=== PATIENT | female | born 1990 | race Two or more races ===

== ENCOUNTER 2021-10-15 08:48 | Outpatient (REF) | payer OTHER, SELFPAY ==
[2021-10-16 11:34] LABS: H Pylori Breath Test Negative (Negative)
== END 2021-10-15 08:49 | disposition home or self-care (01) ==
LOC: HO.LNP 08:48
PROVIDERS: Surgery; PCP Internal Medicine; Visit Provider Physician Assistant Surgical
DX: E66.9 Obesity, unspecified (principal); Z68.35 Body mass index [BMI] 35.0-35.9, adult; I10 Essential (primary) hypertension
CPT/HCPCS: 83013; 99211

== ENCOUNTER → 2021-10-27 14:40 | Outpatient (BNVA) | payer OTHER, SELFPAY | PROVIDERS: PCP Internal Medicine; Visit Provider Physician Assistant Surgical | DX: E66.9 Obesity, unspecified (principal); Z68.36 Body mass index [BMI] 36.0-36.9, adult | CPT/HCPCS: 99212 ==

== ENCOUNTER → 2021-10-28 16:30 | Outpatient (BNVA) | payer OTHER, SELFPAY | PROVIDERS: PCP Internal Medicine; Visit Provider Counselor Mental Health | DX: F33.1 Major depressive disorder, recurrent, moderate (principal) | CPT/HCPCS: 90791 ==

== ENCOUNTER 2021-11-25 09:45 | Outpatient (REF) | payer OTHER, SELFPAY ==
--- NOTE | ~2021-11-25 | XR_ITS ---
EXAMINATION: XR CHEST 2 VIEWS CLINICAL INFORMATION: Obesity. COMPARISON: None. TECHNIQUE: Frontal and lateral views of the chest were obtained. FINDINGS: The heart, great vessels, pulmonary vasculature and mediastinum are normal. The lungs show no focal infiltrate, effusion or pneumothorax. There is no acute osseous abnormality. There is retained barium within the stomach and upper abdominal bowel loops. XR/XR chest 2V IMPRESSION: No active cardiopulmonary disease.
--- NOTE | ~2021-11-25 | US_ITS ---
EXAMINATION: US COMPLETE ABDOMEN WITH LIVER ELASTOGRAPHY CLINICAL INFORMATION: Obesity COMPARISON: None TECHNIQUE: Real-time imaging of the abdominal viscera. Noninvasive ultrasound liver fibrosis assessment is performed using [employer]hat ElastPQ point quantification shear wave elastography (2D-SWE) with a C5-2 MHz transducer. Multiple elastography samples are obtained. FINDINGS: PANCREAS: Normal. The visualized pancreatic head and body are normal in appearance. The remainder of the pancreas is obscured from visualization by the overlying bowel gas. ABDOMINAL AORTA: The proximal, middle, and distal aortic segments are normal in caliber. INFERIOR VENA CAVA: Visualized portions are normal. LIVER: Normal. The liver demonstrates normal size, contour and echogenicity. No focal lesion or intrahepatic biliary duct dilatation. The right lobe measures 14.5 cm in length. The left lobe measures 10.6 cm in length. Portal flow is hepatopedal. Shear wave liver elastography median stiffness is 1.83 m/s (reference: normal median stiffness is 1.3 m/s or less). IQR/median stiffness to assess sampling precision is 0.34 (reference: good quality data set is IQR/median stiffness of 0.15 or less). GALLBLADDER: Gallbladder wall thickness is 0.3 cm. The gallbladder is physiologically distended without evidence of stones, sludge, polyps, wall thickening or pericholecystic fluid. COMMON BILE DUCT: Normal in caliber measuring 0.4 cm in diameter. RIGHT KIDNEY: Normal. No hydronephrosis. No renal calculi or focal parenchymal lesions. The kidney measures 11.1 cm in maximum dimension. LEFT KIDNEY: Normal. No hydronephrosis. No renal calculi or focal parenchymal lesions. The kidney measures 11.2 cm in maximum dimension. SPLEEN: Normal. The spleen measures 9.9 cm in maximum dimension. FREE FLUID: None US/US abdomen comp w elastography IMPRESSION: 1. Unremarkable complete abdomen ultrasound. 2. Liver elastography: Median liver stiffness measurement of 1.83 m/s correlates with cACLD (suggestive). REFERENCE: Society of Radiologists in Ultrasound Liver Stiffness Thresholds (2020): LIVER STIFFNESS THRESHOLDS: *Liver Stiffness equal or less than 1.3 m/s: High probability of being normal. *Liver Stiffness less than 1.7 m/s: In the absence of other known clinical signs, rules out compensated advanced chronic liver disease. *Liver Stiffness 1.7-2.1 m/s: Suggestive of compensated advanced chronic liver disease but need further test for confirmation. *Liver Stiffness over 2.1 m/s: Rules in compensated advanced chronic liver disease. *Liver Stiffness over 2.4 m/s: Suggestive of clinically significant portal hypertension. QUALITY OF DATA SET: *IQR/Median value equal or less than 0.15 implies a quality data set. *IQR/Median value over 0.15 implies a poor quality data set. SIGNIFICANT CHANGE FROM PRIOR EXAM: Significant change if liver stiffness measurement is 10% or greater from prior exam. OTHER CONSIDERATIONS: The stage of liver fibrosis may be overestimated in the setting of acute hepatitis, liver inflammation, elevated liver function tests, hepatic vascular congestion, obstructive cholestasis, non-fasting state, and infiltrative diseases such as amyloidosis and lymphoma. In some patients with NAFLD, the liver stiffness thresholds for compensated advanced chronic liver disease may be lower. In causes other than viral hepatitis and NAFLD, liver stiffness thresholds are not well established.
--- NOTE | ~2021-11-25 | FL_ITS ---
EXAMINATION: XR FLUOROSCOPY UPPER GI WITH AIR CLINICAL INFORMATION: Obesity. COMPARISON: None. TECHNIQUE: Routine upper GI air-contrast study was performed. FINDINGS: Following oral administration of thick barium and effervescent granules, there is normal propagation of bolus from the oral cavity through the pharynx and esophagus and into stomach without any evidence of obstruction, narrowing or stricture. On placing patient supine and prone lying, the course, caliber and peristalsis of the stomach, duodenal bulb and the sweep are normal. There is mild gastroesophageal reflux without hiatal hernia. There is flocculation of barium in the antrum of the stomach suspicious for increased acidity. No ulceration order erosive changes seen. FLUOROSCOPY TIME: 1.7 minutes. DOSE AREA PRODUCT: 30.358 uGy-m2 (microgray-meter squared). FL/FL upper GI w air IMPRESSION: Mild gastroesophageal reflux without hiatal hernia. Suspect mild increased acidity. No ulceration seen.
[2021-11-25 10:09] LABS: MANUAL DIFF FLAG NO
[2021-11-25 11:07] LABS: Basophils Percent Auto 0.7 % (0-2); Eosinophils Absolute Auto 0.4 X10*3/uL (0.0-0.4); Eosinophils Percent Auto 5.9 % (0-4); Hematocrit 39.4 % (37.0-47.0); Hemoglobin 12.7 g/dl (12.0-16.0); Imm Gran Abs Auto 0.02 X10*3/uL (0.00-0.03); Imm Gran Pct Auto 0.3 % (0.0-0.4); Lymphocytes Absolute Auto 1.4 X10*3/uL (1.2-4.9); Lymphocytes Percent Auto 22.9 % (20-40); Mean Corpuscular HGB Conc 32.2 g/dl (31.0-35.0); Mean Platelet Volume 11.6 fL (9.4-12.3); Monocytes Absolute Auto 0.4 X10*3/uL (0.1-1.2); Monocytes Percent Auto 6.1 % (2-11); Neutrophils Absolute Auto 3.9 x10*3/uL (2.0-8.3); Neutrophils Percent Auto 64.1 % (45-73); Platelet Count 344 X10*3/uL (160-400); Red Blood Count 4.53 X10*6/uL (4.20-5.50); Red Cell Distribution Width 13.1 % (11.0-16.0); White Blood Count 6.1 X10*3/uL (4.8-10.8)
[2021-11-25 11:19] LABS: Estimated Average Glucose 91 mg/dL; Hemoglobin A1c % 4.8 %
[2021-11-25 11:43] LABS: Alanine Aminotransferase 11 U/L (0-31); Albumin Level 4.2 g/dL (3.5-5.0); Alkaline Phosphatase 56 U/L (39-117); Anion Gap 16 (12-20); Aspartate Amino Transferase 17 U/L (5-31); Bilirubin Total 0.7 mg/dL (0.0-1.0); Blood Urea Nitrogen 19 mg/dL (9-16); C Reactive Protein 0.35 mg/dL (< or = 0.50); Calcium 8.8 mg/dL (8.4-10.2); Carbon Dioxide 25 mmol/L (22-29); Chloride 103 mmol/L (96-108); Cholesterol 192 mg/dL; Estimated Glomerular Filt Rate > 60; Glucose Random 90 mg/dL (60-115); HDL Cholesterol 62 mg/dL; Iron 107 mcg/dL (30-160); LDL Cholesterol Calculated 115 mg/dl; Percent Iron Saturation 27 % (15-50); Potassium 4.4 mmol/L (3.3-5.1); Sodium 140 mmol/L (135-145); Total Iron Binding Capacity 398 mcg/dL (228-428); Total Protein 7.4 g/dL (6.5-8.0); Triglycerides 76 mg/dL; Unsaturated Iron Binding 291 ug/dL
[2021-11-25 12:14] LABS: Ferritin 23 ng/mL (10-122); Insulin 8 uU/mL (2-29); TSH reflex Free T4 0.62 uIU/mL (0.32-4.0); Vitamin D 25-OH Total 17.8 ng/mL (>30)
[2021-11-25 12:16] LABS: Folate 14.1 ng/mL (> or = 4.0); Vitamin B12 533 pg/mL (200-900)
[2021-11-28 12:52] LABS: PTHI 65 pg/mL (16-77)
[2021-11-30 14:18] LABS: Zinc 60 mcg/dL (60-130)
[2021-12-01 14:02] LABS: Vitamin B1 10 nmol/L (8-30)
[2021-12-01 15:17] LABS: Vitamin A 38 mcg/dL (38-98)
== END 2021-11-25 09:46 | disposition home or self-care (01) ==
LOC: HO.LAB 09:45
PROVIDERS: Visit Provider Surgery
DX: E66.9 Obesity, unspecified (principal); I10 Essential (primary) hypertension; K21.9 Gastro-esophageal reflux disease without esophagitis; Z68.35 Body mass index [BMI] 35.0-35.9, adult
CPT/HCPCS: 36415; 71046; 74246; 76705; 76981; 80053; 80061; 82306; 82607; 82728; 82746; 83036; 83525; 83540; 83970; 84425; 84443; 84590; 84630; 85025; 86140

== ENCOUNTER → 2021-12-09 15:00 | Outpatient (BNVA) | payer OTHER, SELFPAY | PROVIDERS: PCP Internal Medicine; Visit Provider Counselor Mental Health | DX: F33.1 Major depressive disorder, recurrent, moderate (principal) | CPT/HCPCS: 90832 ==

== ENCOUNTER 2021-12-16 11:45 | Outpatient (REF) | payer OTHER, SELFPAY ==
--- NOTE | 2021-12-16 11:50 | ECG_ITS ---
Test Reason : e66.9 Blood Pressure : / mmHG Vent. Rate : 082 BPM Atrial Rate : 082 BPM P-R Int : 138 ms QRS Dur : 074 ms QT Int : 364 ms P-R-T Axes : 067 057 026 degrees QTc Int : 425 ms Normal sinus rhythm with sinus arrhythmia Normal ECG No previous ECGs available Referred By: Alex Yuen Electronically Signed By:BERNARD ANDREA
== END 2021-12-16 11:46 | disposition home or self-care (01) ==
LOC: HO.XRAY 11:45
PROVIDERS: Visit Provider Surgery
DX: I10 Essential (primary) hypertension (principal); E66.9 Obesity, unspecified; Z68.35 Body mass index [BMI] 35.0-35.9, adult
CPT/HCPCS: 93005

== ENCOUNTER → 2021-12-23 09:45 | Outpatient (BNVA) | payer OTHER, SELFPAY | PROVIDERS: PCP Internal Medicine; Visit Provider Dietitian, Registered | DX: E66.9 Obesity, unspecified (principal); Z68.35 Body mass index [BMI] 35.0-35.9, adult | CPT/HCPCS: 97802 ==

== ENCOUNTER → 2022-02-08 13:45 | Outpatient (BNVA) | payer OTHER, SELFPAY | PROVIDERS: PCP Internal Medicine; Visit Provider Dietitian, Registered | DX: E66.9 Obesity, unspecified (principal) | CPT/HCPCS: 97803 ==

== ENCOUNTER → 2022-04-06 08:10 | Outpatient (BNVA) | payer OTHER, SELFPAY | PROVIDERS: PCP Internal Medicine; Visit Provider Surgery | DX: Z13.89 Encounter for screening for other disorder (principal) ==

== ENCOUNTER → 2022-04-15 08:20 | Outpatient (BNVA) | payer OTHER, SELFPAY | PROVIDERS: PCP Internal Medicine; Visit Provider Surgery | DX: Z13.89 Encounter for screening for other disorder (principal) ==

== ENCOUNTER 2022-04-26 06:14 | Inpatient (IN) | payer OTHER, SELFPAY ==
[2022-04-18 10:06] VITALS: BMI 34.2
[2022-04-21 10:30] LABS: MANUAL DIFF FLAG NO
[2022-04-21 10:48] LABS: Basophils Percent Auto 0.8 % (0-2); Eosinophils Absolute Auto 0.4 X10*3/uL (0.0-0.4); Eosinophils Percent Auto 6.9 % (0-4); Hematocrit 38.5 % (37.0-47.0); Hemoglobin 12.5 g/dl (12.0-16.0); Imm Gran Abs Auto 0.01 X10*3/uL (0.00-0.03); Imm Gran Pct Auto 0.2 % (0.0-0.4); Lymphocytes Absolute Auto 1.7 X10*3/uL (1.2-4.9); Lymphocytes Percent Auto 32.7 % (20-40); Mean Corpuscular HGB Conc 32.5 g/dl (31.0-35.0); Mean Corpuscular Hemoglobin 28.6 pg (27.0-33.0); Mean Corpuscular Volume 88.1 fL (80.0-98.0); Mean Platelet Volume 11.5 fL (9.4-12.3); Monocytes Absolute Auto 0.4 X10*3/uL (0.1-1.2); Monocytes Percent Auto 8.3 % (2-11); Neutrophils Absolute Auto 2.6 x10*3/uL (2.0-8.3); Neutrophils Percent Auto 51.1 % (45-73); Platelet Count 311 X10*3/uL (160-400); Red Blood Count 4.37 X10*6/uL (4.20-5.50); Red Cell Distribution Width 12.6 % (11.0-16.0); White Blood Count 5.1 X10*3/uL (4.8-10.8)
[2022-04-21 10:55] LABS: Estimated Average Glucose 94 mg/dL; Hemoglobin A1c % 4.9 %
[2022-04-21 10:57] LABS: Prothrombin Time 11.4 SEC (10.0-13.1)
[2022-04-21 11:00] LABS: Partial Thromboplastin Time 32.4 SEC (26.0-36.4)
[2022-04-21 13:10] LABS: Alanine Aminotransferase 12 U/L (0-31); Albumin Level 4.1 g/dL (3.5-5.0); Alkaline Phosphatase 60 U/L (39-117); Anion Gap 9 (12-20); Aspartate Amino Transferase 16 U/L (5-31); Bilirubin Total 0.8 mg/dL (0.0-1.0); Blood Urea Nitrogen 19 mg/dL (9-16); C Reactive Protein 0.28 mg/dL (< or = 0.50); Calcium 9.2 mg/dL (8.4-10.2); Carbon Dioxide 27 mmol/L (22-29); Chloride 107 mmol/L (96-108); Cholesterol 183 mg/dL; Creatinine Clr Calc Pharmacy 103.4; Estimated Glomerular Filt Rate > 60; Glucose Random 88 mg/dL (60-115); HDL Cholesterol 56 mg/dL; LDL Cholesterol Calculated 116 mg/dl; Potassium 4.6 mmol/L (3.3-5.1); Sodium 138 mmol/L (135-145); Total Protein 7.1 g/dL (6.5-8.0); Triglycerides 58 mg/dL
[2022-04-21 13:31] LABS: Insulin 7 uU/mL (2-29); TSH reflex Free T4 0.71 uIU/mL (0.32-4.0)
--- NOTE | 2022-04-22 22:34 | MHC.SHP ---
Pre-Procedural Eval Section A Date of Service: 04/22/22 The patient is an INPATIENT: Yes The History & Physical has been completed within 30 days and I have reviewed it.: Yes Section B Chief Complaint: Obesity, unspecified Relevant Family History (Specify if Yes): No Relevant Social History: None Present Medications: None Medical History: No relevant PMH History of Previous Operations: No relevant previous surgery Allergies: Allergies Allergy/AdvReac Type Severity Reaction Status Date / Time seafood Allergy Lip Verified 04/18/22 10:06 Swelling Review of Systems Sugical H&P ROS: Negative: Constitution, Cardiovascular, Respiratory, Neurological, Psychiatric, Hem-Onc, Allergic/Immunologic, Gastrointestinal, Genitourinary, Musculoskeletal, Integumentary, Endocrine and Eyes/Ears/Nose/Throat Exam Surgical H&P Exam: Normal: HEENT, Normal: Heart, Normal: Lungs, Normal: Extremities, Normal: Abdomen, Normal: Skin and Normal: Neurological Plan Diagnosis/Plan: Unchanged I have reviewed the history and physical and performed a pertinent physical examination on my patient. No changes have occurred unless specified. Time Spent With Patient Time: Total time managing care of this patient today ____ minutes.
--- NOTE | 2022-04-25 10:33 | P.CONAN_ITS ---
Documented by User: Jocelyn Hampton NP 04/25/22 10:34 HPI - Anesthesia Eval Consult details Narrative: 31yo F for Gastrectomy Sleeve,Possible Diaphragmatic hernia,Possible Ventral Hernia,Possible open PMFSH Active Problems Active Problems: All Active Problems (Updated 04/18/22 @ 09:51 by Hayde Mandujano, QUEENIE) Obesity (Acute) BMI 35.0-35.9,adult (Acute) Hypertension (Acute) Depression (Acute) Anxiety (Acute) Major depressive disorder, recurrent, moderate (Acute) Vitamin D deficiency (Acute) BMI 36.0-36.9,adult (Acute) BMI 34.0-34.9,adult (Acute) BMI 33.0-33.9,adult (Acute) Past Medical History Medical History Asthma HTN (hypertension) Family History Family History Mother Asthma Anxiety with depression Anemia Father No problems noted. Brother Anxiety with depression Sister No problems noted. Sister No problems noted. Sister No problems noted. Daughter No problems noted. Daughter Asthma Son Asthma Son Asthma Son No problems noted. Surgical History Surgical History History of tubal ligation Hx of section Social History Social History Are you a primary insurance healthcare representative to a significant other at home: No Do you presently have visiting nurse or other home services: No Alcohol intake: current Alcohol intake frequency: holidays/special occasions only Patient Tobacco Use Status: Never used Tobacco Use of substances other than those prescribed or required for medical reasons: No Have you been hit, kicked, punched, or otherwise hurt by someone within the past year? If so, by whom?: No Are you DNR?: No Advance Directives: No Advance Directives Information Provided: Yes (info mailed w/ pre-op instructions) Advance Directives on File: No Recently lost weight without trying: No How much weight loss: 2-13 pounds Nutrition Risks: No Nutritional Risk Patient : No FDLMP: 03/26/22 : No Poor oral hygiene: No Meds Allergies Allergy/AdvReac Type Severity Reaction Status Date / Time seafood Allergy Lip Verified 04/26/22 06:21 Swelling Home Medications Medication Instructions Recorded Confirmed Last Taken Type albuterol sulfate 90 mcg/actuation 1 puff PO QID PRN wheezing 09/27/21 04/26/22 04/25/22 History aerosol inhaler (ProAir HFA) hydrochlorothiazide 25 mg tablet 25 mg PO DAILY 09/27/21 04/26/22 04/25/22 History Exam Exam Date and Time: April 25, 2022 1033 Height,Weight and Vital Signs: Height 5 ft 2 in Weight 84.822 kg Pertinent Lab Results Pertinent Lab Results: Laboratory Tests 04/21/22 04/21/22 04/21/22 10:25 10:29 10:29 WBC 5.1 RBC 4.37 Hgb 12.5 Hct 38.5 MCV 88.1 MCH 28.6 MCHC 32.5 RDW 12.6 Plt Count 311 MPV 11.5 Immature Gran % (Auto) 0.2 Neut % (Auto) 51.1 Lymph % (Auto) 32.7 Rowan % (Auto) 8.3 Eos % (Auto) 6.9 H Baso % (Auto) 0.8 Lymph # (Auto) 1.7 Rowan # (Auto) 0.4 Eos # (Auto) 0.4 Baso # (Auto) 0.0 Abs Immat Gran (auto) 0.01 Absolute Neuts (auto) 2.6 Absolute Nucleated RBC 0.000 Nucleated RBC % (auto) 0.0 PT 11.4 INR 1.0 APTT 32.4 Sodium Potassium Chloride Carbon Dioxide Anion Gap BUN Creatinine Estim Creat Clear Calc Estimated GFR Random Glucose Estimat Average Glucose Hemoglobin A1c % Insulin Level Calcium Total Bilirubin AST ALT Alkaline Phosphatase C-Reactive Protein Total Protein Albumin Triglycerides Cholesterol LDL Cholesterol, Calc HDL Cholesterol TSH Blood Type O Positive Antibody Screen NEGATIVE 04/21/22 04/21/22 10:29 10:29 WBC RBC Hgb Hct MCV MCH MCHC RDW Plt Count MPV Immature Gran % (Auto) Neut % (Auto) Lymph % (Auto) Rowan % (Auto) Eos % (Auto) Baso % (Auto) Lymph # (Auto) Rowan # (Auto) Eos # (Auto) Baso # (Auto) Abs Immat Gran (auto) Absolute Neuts (auto) Absolute Nucleated RBC Nucleated RBC % (auto) PT INR APTT Sodium 138 Potassium 4.6 Chloride 107 Carbon Dioxide 27 Anion Gap 9 L BUN 19 H Creatinine 0.81 Estim Creat Clear Calc 103.4 Estimated GFR > 60 Random Glucose 88 Estimat Average Glucose 94 Hemoglobin A1c % 4.9 Insulin Level 7 Calcium 9.2 Total Bilirubin 0.8 AST 16 ALT 12 Alkaline Phosphatase 60 C-Reactive Protein 0.28 Total Protein 7.1 Albumin 4.1 Triglycerides 58 Cholesterol 183 LDL Cholesterol, Calc 116 HDL Cholesterol 56 TSH 0.71 Blood Type Antibody Screen Narrative Narrative: EKG 12/2021 Vent. Rate : 082 BPM ? ? Atrial Rate : 082 BPM ?? P-R Int : 138 ms? QRS Dur : 074 ms ? ? QT Int : 364 ms ? ? ? P-R-T Axes : 067 057 026 degrees ?? QTc Int : 425 ms ? Normal sinus rhythm with sinus arrhythmia Normal ECG No previous ECGs available Assessment and Plan Assessment Anesthesia Assessment: Chart Reviewed Documented by User: Kayleen Guerrero MD 04/26/22 07:40 [facility] Active Problems Active Problems: All Active Problems (Updated 04/26/22 @ 07:20 by Kayleen Guerrero MD) Obesity (Acute) BMI 35.0-35.9,adult (Acute) Hypertension (Acute) Depression (Acute) Anxiety (Acute) Major depressive disorder, recurrent, moderate (Acute) Vitamin D deficiency (Acute) BMI 36.0-36.9,adult (Acute) BMI 34.0-34.9,adult (Acute) BMI 33.0-33.9,adult (Acute) Asthma Past Medical History Medical History Asthma HTN (hypertension) Family History Family History Mother Asthma Anxiety with depression Anemia Father No problems noted. Brother Anxiety with depression Sister No problems noted. Sister No problems noted. Sister No problems noted. Daughter No problems noted. Daughter Asthma Son Asthma Son Asthma Son No problems noted. Family history of problems with anesthesia: No Surgical History Surgical History History of tubal ligation Hx of section History of Problems with Anesthesia: No (C- Section) Social History Social History Are you a primary insurance healthcare representative to a significant other at home: No Do you presently have visiting nurse or other home services: No Alcohol intake: current Alcohol intake frequency: holidays/special occasions only Patient Tobacco Use Status: Never used Tobacco Use of substances other than those prescribed or required for medical reasons: No Have you been hit, kicked, punched, or otherwise hurt by someone within the past year? If so, by whom?: No Are you DNR?: No Advance Directives: No Advance Directives Information Provided: Yes (info mailed w/ pre-op instructions) Advance Directives on File: No Recently lost weight without trying: No How much weight loss: 2-13 pounds Nutrition Risks: No Nutritional Risk Patient : No FDLMP: 03/26/22 : No Poor oral hygiene: No Meds Allergies Allergy/AdvReac Type Severity Reaction Status Date / Time seafood Allergy Lip Verified 04/26/22 06:21 Swelling Home Medications Medication Instructions Recorded Confirmed Last Taken Type albuterol sulfate 90 mcg/actuation 1 puff PO QID PRN wheezing 09/27/21 04/26/22 04/25/22 History aerosol inhaler (ProAir HFA) hydrochlorothiazide 25 mg tablet 25 mg PO DAILY 09/27/21 04/26/22 04/25/22 History Exam Height,Weight and Vital Signs: Height 5 ft 2 in Weight 84.822 kg Vital Signs Temp Pulse Resp BP Pulse Ox O2 Del Method 04/26/22 06:34 98.0 F 86 16 142/91 H 99 Room Air Pertinent Lab Results Pertinent Lab Results: Laboratory Tests 04/21/22 04/21/22 04/21/22 10:25 10:29 10:29 WBC 5.1 RBC 4.37 Hgb 12.5 Hct 38.5 MCV 88.1 MCH 28.6 MCHC 32.5 RDW 12.6 Plt Count 311 MPV 11.5 Immature Gran % (Auto) 0.2 Neut % (Auto) 51.1 Lymph % (Auto) 32.7 Rowan % (Auto) 8.3 Eos % (Auto) 6.9 H Baso % (Auto) 0.8 Lymph # (Auto) 1.7 Rowan # (Auto) 0.4 Eos # (Auto) 0.4 Baso # (Auto) 0.0 Abs Immat Gran (auto) 0.01 Absolute Neuts (auto) 2.6 Absolute Nucleated RBC 0.000 Nucleated RBC % (auto) 0.0 PT 11.4 INR 1.0 APTT 32.4 Sodium Potassium Chloride Carbon Dioxide Anion Gap BUN Creatinine Estim Creat Clear Calc Estimated GFR Random Glucose Estimat Average Glucose Hemoglobin A1c % Insulin Level Calcium Total Bilirubin AST ALT Alkaline Phosphatase C-Reactive Protein Total Protein Albumin Triglycerides Cholesterol LDL Cholesterol, Calc HDL Cholesterol TSH Blood Type O Positive Antibody Screen NEGATIVE 04/21/22 04/21/22 10:29 10:29 WBC RBC Hgb Hct MCV MCH MCHC RDW Plt Count MPV Immature Gran % (Auto) Neut % (Auto) Lymph % (Auto) Rowan % (Auto) Eos % (Auto) Baso % (Auto) Lymph # (Auto) Rowan # (Auto) Eos # (Auto) Baso # (Auto) Abs Immat Gran (auto) Absolute Neuts (auto) Absolute Nucleated RBC Nucleated RBC % (auto) PT INR APTT Sodium 138 Potassium 4.6 Chloride 107 Carbon Dioxide 27 Anion Gap 9 L BUN 19 H Creatinine 0.81 Estim Creat Clear Calc 103.4 Estimated GFR > 60 Random Glucose 88 Estimat Average Glucose 94 Hemoglobin A1c % 4.9 Insulin Level 7 Calcium 9.2 Total Bilirubin 0.8 AST 16 ALT 12 Alkaline Phosphatase 60 C-Reactive Protein 0.28 Total Protein 7.1 Albumin 4.1 Triglycerides 58 Cholesterol 183 LDL Cholesterol, Calc 116 HDL Cholesterol 56 TSH 0.71 Blood Type Antibody Screen Laboratory Results - last 24 hr 04/25/22 14:19 COVID-19 (JACQUELINE) Negative COVID-19 Clin Com See Note Airway Mallampati Class: II TM Dist: >3cm Neck ROM: Full Loose/Missing/Broken Teeth: No (Denies broken, loose, missing teeth) Heart: RRR. Small patch of redness above right breast area. Rest of chest clear Lungs: CTAB. No wheezes Assessment and Plan Assessment Anesthesia Assessment: Anesthesia Plan Discussed Final Anesthetic Review Family History of Problems with Anesthesia: No History of Problems with Anesthesia: No (C- Section) NPO: Yes ASA Class: II Final Preanesthetic Review: No Changes in Pt Med Stat, Meds/Allgs Chart Reviewed, Consent Obtained/Reviewed and Anes Risks/Benef Reviewed Patient Risk: Intermediate Procedure Risk: Intermediate Assessment/Block/Sedation in SS: Assess/Block/Sedation-SS Anesthetic Plan Anesthetic Plan: GA Disposition: Standard PACU and Inp. Admit - Standard Bed
[2022-04-25 14:51] LABS: COVID-19 Test Negative (Negative); IDNOW Serial# BCCEAD1C
[2022-04-26] VITALS (14 sets, daily range): BP systolic 127–163; BP diastolic 75–108; PULSE 79–98; RESP 8–18; TEMP 36.2–36.7; O2SAT 94–100
[2022-04-26] MEDS: Lactated Ringers 1,000 ML 999 ML IV (06:47)
[2022-04-26] MEDS: Lactated Ringers 1,000 ML 100 ML IVCONT ×3 (06:47→19:20)
--- OUTSIDE RECORDS SUMMARY | 2022-04-26 07:08 | XMS_ITS | Continuity of Care Document ---
:1990 Author Organization [facility] Address [address] [place] [id number]- Care Team Providers Name Role Phone Kizzy SONG, Vu Klein Primary Care Physician Encounter [facility] Date(s): 02/24/22 - 04/23/22 [facility] [address] [place] [id number]- Attending Physician: Not on Staff, Attending MD Allergies, Adverse Reactions, Alerts Substance Reaction Severity Status Pollen Active Shrimp lips swell Active Immunizations Given and Recorded Vaccine Date Status Refusal Reason tetanus/diphtheria/pertussis, acel(Tdap) 04/21/22 Given tetanus/diphtheria/pertussis, acel(Tdap) 03/22/12 Given influenza virus vaccine, inactivated 04/21/22 Given influenza virus vaccine, inactivated 02/26/21 Given influenza virus vaccine, inactivated 03/23/18 Given influenza virus vaccine, inactivated 04/30/14 Given influenza virus vaccine, inactivated 03/22/12 Given influenza virus vaccine, inactivated 03/29/11 Given influenza virus vaccine, inactivated 12/18/09 Given SARS-CoV-2 mRNA ([id number]) vax 08/02/21 Recorde d SARS-CoV-2 mRNA ([id number]) vax 07/01/21 Recorde d Measles/Mumps/Rubella Virus Vaccine 03/22/12 Given Measles/Mumps/Rubella Virus Vaccine 10/30/96 Given Measles/Mumps/Rubella Virus Vaccine 07/25/96 Given Measles/Mumps/Rubella Virus Vaccine 12/23/93 Given Meningococcal Conjugate Vaccine 03/29/11 Given Meningococcal Conjugate Vaccine1 11/27/07 Given Human Papillomavirus Vaccine2 11/27/07 Given Human Papillomavirus Vaccine 01/09/07 Given Human Papillomavirus Vaccine 10/27/06 Given Influenza Inactive (IM) (oldterm)3 01/09/07 Given Influenza Inactive (IM) (oldterm)4 05/04/05 Given Tet/Diphth/Acel, Pertussis (oldterm) 04/25/06 Given Poliovirus Vaccine, Inactivated 07/25/96 Given Poliovirus Vaccine, Inactivated 12/23/93 Given Poliovirus Vaccine, Inactivated 01/19/93 Given Poliovirus Vaccine, Inactivated 92 Given Diphth/Pertussis,Acel/Tetanus (oldterm) 07/25/96 Given Diphth/Pertussis,Acel/Tetanus (oldterm) 12/23/93 Given Diphth/Pertussis,Acel/Tetanus (oldterm) 03/11/93 Given Diphth/Pertussis,Acel/Tetanus (oldterm) 01/19/93 Given Diphth/Pertussis,Acel/Tetanus (oldterm) 92 Given Haemophilus B Conj Vaccine (oldterm) 12/23/93 Given Haemophilus B Conj Vaccine (oldterm) 03/11/93 Given Hepatitis B Vaccine (old term) 03/11/93 Given Hepatitis B Vaccine (old term) 01/19/93 Given Hepatitis B Vaccine (old term) 92 Given Not Given Vaccine Date Status Refusal Reason pneumococcal 23-valent vaccine 01/05/14 Not Given P atient Refuses 1Admin Note: VIS GIVEN---MENACTRA, SANOFI [id number] Note: VIS [id number] Note: vis [id number] Note: hx varicella unknown date Medications amLODIPine 10 mg oral tablet 10 mg, 1, tablet, By Mouth, Daily, # 90 tablet, Refills 2, Tot. Refills 2, Maintenance, 02/24/22 8:54:00 EST, Route to Pharmacy Electronically, [facility]/pharmacy #[id number], Partial fill upon patient request if the prescription is for a schedule II opioid drug.... Start Date: 02/24/22 Status: OrderedExcedrin Extra Strength By Mouth, Every 6 hours, 0 Refills, Maintenance, 04/26/21 22:54:00 EST, Partial fill upon patient request if the prescription is for a schedule II opioid drug. Start Date: 04/26/21 Status: Orderedhydrochlorothiazide 25 mg oral tablet 1, tablet, By Mouth, Daily, # 30 tablet, Refills 0, Route to Pharmacy Electronically, [facility] STORE [id number], 158, cm, 09/03/21 12:06:00 EDT, Height, 99, kg, 04/27/21 0:39:00 EST, Dry Weight Start Date: 10/11/21 Status: OrderedProAir HFA 90 mcg/inh inhalation aerosol with adapter See Instructions, INHALE 1 PUFF BY MOUTH 4 TIMES A DAY NEEDED FOR WHEEZING, # 18 Gm, Refills 3, Tot. Refills 3, 02/24/22 8:55:00 EST, Instructions Replace Required Details, Route to Pharmacy Electronically, [id number], [facility] Start Date: 02/24/22 Status: OrderedSymbicort 160mcg/4.5mcg Inhaler 2, puffs, Inhalation, 2 times a day, # 10.2 Gm, Refills 3, Tot. Refills 3, Maintenance, 02/24/22 8:55:00 EST, Aerosol, Route to Pharmacy Electronically, [id number], [facility]/pharmacy #[id number], 158, cm, 02/24/22 8:35:00 EST, Height, 9... Start Date: 02/24/22 Status: Ordered Problem List Condition Confirmation Course Effective Dates Status Health I nformant Status Anxiety Confirmed Active Asthma - moderate, Confirmed Active persistent COVID-19 positive Confirmed 04/08/21 Active 04/08/21 COVID-19 affecting Confirmed 04/08/21 Active in second trimester History of classical Confirmed Active section History of Confirmed Active depression Hx of preeclampsia, Confirmed Active prior , currently Chronic hypertension Confirmed Active Migraine with aura Confirmed Active Obese class II Confirmed Active Obesity in Confirmed Active Depression, major, Confirmed Active recurrent Severe obesity (BMI Confirmed Active 35.0-39.9) with comorbidity Request for Confirmed Active sterilization - considering (papers signed 09/21/15) Social History Social History Type Response Smoking Status Never (less than 100 in life time) entered on: 01/18/21 Sex Patient Care team information Care Team PersonnelName: Kizzy SONG, Vu Klein Position: S Primary Care Physician Member Role: PCP Address: Address: [address] [place] [address] [facility] [place] [address]- Name: Reynaldo JEROME, Kiki Stephens Position: S OB RN Member Role: Primary Care Nurse Care Team Related PersonsName: MANUEL, MARIAM Address: home [address] [place] [address] Name: CARMITA AMNUEL Address: [address] [place] [address] Name: GUILLERMO PARK Address: [id number] Address: home [address] [place] [address]
--- NOTE | 2022-04-26 07:40 | PM.OP ---
Brief Operative Note Date of Service: 04/26/22 Pre-op diagnosis: Severe obesity with comorbidities (see below) Post-op diagnosis: same Procedure: INITIAL PATIENT BMI ON PRESENTATION AT OUR OFFICE: 35 kg/m2 LAST BMI BEFORE SURGERY: 33.2 kg/m2 COMORBIDITIES: hypertension, depression, anxiety, GERD, liver fibrosis ?The patient presented to the Weight Management Program with significant obesity that was negatively impacting the patient's comorbidities as listed above.? The program is a phased program with a special focus on preoperative medical weight management to promote substantial weight loss and prepare the patients for the second phase of the program: bariatric surgery. The patient participated in an intensive weekly lifestyle ?intervention and exercise program during which the patient ?has lost between the initial office visit and the last preoperative visit 3.6lbs, or 1.88% of initial actual body weight. It was deemed appropriate for the patient to now have bariatric surgery. In light of the current Covid-19 pandemic and the well documented strong association of obesity and increased risk of worse outcomes if infected with Covid-19 (REFERENCES:https://pubmed.ncbi.nlm.nih.gov/44659919/,?https://pubmed.ncbi.nlm.nih.gov/89798562/), any delay in undergoing bariatric surgery may lead to the patient's worsening health condition and increased?risk of more severe Covid-19 disease if infected. In addition a recent?study from [facility] published in [facility] on 04/05/2021 ([email or web address]:/[email or web address]) found that, among patients with obesity, substantial weight loss achieved with surgery was associated with improved outcomes of COVID-19 infection. The findings suggest that obesity can be a modifiable risk factor for the severity of COVID-19 infection. In addition, the patient met the BMI-criteria for bariatric surgery based on the BMI on initial presentation. The patient should not be penalized for achieving such weight loss because ?it is not sustainable long-term without surgical intervention and it was achieved in preparation for bariatric surgery ?under my direction and based on my published research ([email or web address]).pdf and?https://www.soard.org/article/[email or web address](12)35628-X/pdf) ?that a 10% preoperative weight loss improves long-term weight loss after surgery and reduces perioperative complications.? Insurance carriers such as [facility] have endorsed my recommendations ?and have included in their policies criteria to include a 10% preoperative weight loss requirement. PROCEDURE: Esophago-gastroscopy, laparoscopic lysis of adhesions, laparoscopic sleeve gastrectomy and laparoscopic gastropexy INDICATIONS: This is a 31 year-old female who was electively scheduled for laparoscopic, possibly open sleeve gastrectomy. The risks and complications of the procedure were discussed with the patient in advance, particularly the possibility of ; pulmonary embolism; staple line leak; bleeding; GERD; cardiac, pulmonary, or renal complications; as well as long-term problems such as insufficient weight loss, vitamin deficiency, strictures, or ulcers. The patient understood all the risks, and was in agreement to proceed with surgery. DESCRIPTION OF PROCEDURE: After informed consent was obtained from the patient, the patient was given preoperative antibiotics, and was transferred to the operating room. After successful induction of general anesthesia, pneumatic compression devices were placed on both lower extremities. An upper endoscopy was performed next. The oropharynx and esophagus appeared to be within normal limits. There was no diaphragmatic hernia present consistent with the findings of the preoperative upper GI. The stomach was entered. Then after all fluid and air were suctioned and the stomach was fully decompressed, the scope was withdrawn and secured in the mid esophagus. The patient was then prepped and draped in the usual sterile manner, and abdominal access was established at the right upper quadrant with the Chika technique. A 12 mm blunt port was inserted, and the abdomen was insufflated with CO2 to a pressure of 15 mmHg. Under direct visualization, additional ports were placed, specifically two 5 mm Versi-step ports to the left upper quadrant, and a 5 mm Versi-Step port to the right upper quadrant. 1% lidocaine plain was used to infiltrate all port sites as well as all fascia defects. Following that, the patient was placed in a steep reverse Trendelenburg position. An additional 5 mm port was placed to the right flank for the Mediflex retractor that was used to retract the left lobe of the liver. The gastro-esophageal fat pad was opened with the ultrasonic device (Thunderbeat, Olympus) and the anterior esophagus and hiatus were exposed. The angle of His was opened with the ultrasonic device the fundus of the stomach from any diaphragmatic and splenic attachments. I then opened the gastrocolic ligament between the transverse colon and the greater curvature of the stomach with the ultrasonic device to enter the lesser sac and facilitate the ligation of the short gastric vessels. I started at a mid-point along the greater curvature and using the Thunderbeat, all short gastric vessels were divided all the way to the angle of His until the left patricio was completely dissected at its entirety. I then divided the gastro-colic ligament distally to a distance of about 3-4 cm proximal to the pylorus. There were extensive congenital adhesions between the pancreas and posterior gastric wall. Those were lysed completely with the ultrasonic device. Adhesiolysis took approximately 45 min to complete.? The stomach was then divided transversely with one Endo DINA-45 purple and four DINA-6s0 articulating orange loads using the AEON stapler and loads. Every effort was made that the gastric sleeve had a tubular shape and an even caliber throughout. Once the sleeve resection was completed, the staple line of the gastric sleeve was reinforced with Hemoclips. The resected stomach was retrieved without difficulty from the Chika port. A gastropexy was then performed in order to prevent postoperative GERD and partial gastric volvulus. Several interrupted 2.0 Surgidac sutures were placed between the sleeve's staple line and the previously divided greater omentum and gastro-colic ligament using the Endo-Stitch device. ?An upper endoscopy was performed. There was no narrowing at the GE junction. The scope was easily advanced all the way to the pylorus which was clearly visualized. There was no narrowing anywhere and the sleeve's caliber was even throughout. The sleeve's staple line was inspected and there was no evidence of ischemia, bleeding or dehiscence. At that point the gastroscope was withdrawn from the patient?s mouth while we were decompressing the bowel and the stomach from any remaining air. I looked into the lesser sac to see how the sleeve was situating and it was situating well. There was no bleeding from the staple line, spleen, or short gastric vessels. The Mediflex retractor was removed, and the undersurface of the liver was inspected and there was no bleeding. The patient was placed in supine position. I closed the fascial defect of the 12 mm port site with a figure of eight #1 Polysorb suture. Then 30cc of Ropivacaine plain with 10 mg of Dexamethasone were used to infiltrate the fascial closure as well as all skin incisions. A total of 5ml Zynrelef was applied in the Chika wound. At this point, the abdomen was deflated, all ports were removed under direct vision, and no bleeding was noted from any of the port sites. The skin incisions were irrigated with saline and were closed with 4-0 absorbable monofilament sutures. Steri-Strips and OpSites were used to cover all incisions. The patient was extubated and was transferred in stable condition to the recovery room for further care. I was present and performed all garza parts of the procedure. Ms. Gravesson was the first line supervisor. There were no residents to assist with this case. Will Yuen MD, PhD, FACS Surgeon: Alex Yuen MD Anesthesia: GETA, local and other (TAP block & 5ml Zynrelef) Was an Civil Engineering Project Designer used for this Procedure?: No Civil Engineering Project Designer: Amy Purdy Estimated blood loss (mL): 10 IV fluids (mL): 2,400 Urine output (mL): 0 (No Zaldivar to record) Pathology: other (Stomach) Condition: stable Disposition: PACU
--- NOTE | 2022-04-26 07:43 | PM.PNGS ---
Subjective Subjective Date of Service: 04/27/22 Interval history: Patient has mild incisional pain, but was able to ambulate and use the incentive spirometer. She is tolerating phase 1 bariatric diet Physical Exam Vital Signs: Vital Signs: Last Vital Signs Temp 98.0 F 04/26/22 06:34 Pulse 86 04/26/22 06:34 Resp 16 04/26/22 06:34 BP 142/91 H 04/26/22 06:34 Pulse Ox 99 04/26/22 06:34 O2 Del Method 04/26/22 06:34 BMI result Body Mass Index 34.2 GI: Inspection: Yes normal to inspection, Yes incision (clean, dry and intact) and Yes obesity Extrem: Right lower extremity: normal to inspection (no calf tenderness) Left lower extremity: normal to inspection (no calf tenderness) Objective Data Active Medications Albuterol Sulfate (Albuterol Sulfate (0.083%) 2.5 Mg/3 Ml Vial.Neb) 2.5 mg INHALE ONCE PRN PRN Reason: Shortness of Breath/Wheezing Fentanyl (Fentanyl Citrate/Pf 100 Mcg/2 Ml Vial) 25 mcg IVPUSH Q5M PRN; Protocol PRN Reason: Pain, Moderate (Pain Scale 4-6 Hydromorphone HCl (Hydromorphone Hcl 0.5 Mg/0.5 Ml Syringe) 0.25 mg IVPUSH Q5M PRN; Protocol PRN Reason: Pain, Severe (Pain Scale 7-10) Lactated Ringer's (Lr) 1,000 mls @ 100 mls/hr IVCONT .Q10H [facility] Last Admin: 04/26/22 06:47 Dose: 100 mls/hr Documented By: SMITHA Lactated Ringer's (Lr) 1,000 mls @ 999 mls/hr IV .Q1H1M [facility] Stop: 04/26/22 08:15 Last Admin: 04/26/22 06:47 Dose: 999 mls/hr Documented By: SMITHA Promethazine HCl 6.25 mg/ (Sodium Chloride) 50.25 mls @ 201 mls/hr IV ONCE PRN PRN Reason: Nausea and Vomiting Ondansetron HCl (Ondansetron Hcl 4 Mg/2 Ml Vial) 4 mg IVPUSH ONCE PRN PRN Reason: Nausea and Vomiting Labs 04/21/22 10:29 04/21/22 10:29 Labs: Laboratory Results - last 24 hr 04/25/22 14:19 COVID-19 (JACQUELINE) Negative COVID-19 Clin Com See Note Procedures Date of Service Date of Service: 04/27/22 Progress Note: A&P Assessment and plan (1) Obesity: Status: Acute Assessment and Plan: s/p laparoscopic sleeve gastrectomy, lysis of adhesions and gastropexy Doing well Check am labs. If OK, will discharge home? 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 Quality Stroke Does the patient have a stroke diagnosis?: No VTE Prior VTE?: No VTE Risk Level:: Surgical - moderate VTE Device Contraindication: N/A - Device Ordered VTE Drug Contraindication: Treatment Not Indicated
--- NOTE | 2022-04-26 10:12 | PM.DS ---
DS: Providers Provider Date of Service: 04/27/22 Date of admission: 04/26/22 06:14 Primary care physician: Unknown Physician DS: Diagnosis Discharge Diagnosis (1) Obesity: Status: Acute (2) BMI 33.0-33.9,adult: Status: Acute (3) Hypertension: Status: Acute (4) Depression: Status: Acute (5) Anxiety: Status: Acute (6) GERD (gastroesophageal reflux disease): Status: Acute (7) Liver fibrosis: Status: Acute (8) Asthma: Status: Acute DS: Summary Hospital Course Hospital Course: ADMITTING DIAGNOSIS: morbid obesity, HTN, asthma DISCHARGE DIAGNOSIS: same, s/p laparoscopic sleeve gastrectomy PAST SURGICAL HISTORY: section and BTL PROCEDURE: upper endoscopy, laparoscopic sleeve gastrectomy DISCHARGE SUMMARY: History of Present Illness: The patient is a 31 year-old woman with a BMI of 34.9 kg/m2 and associated co-morbidities as described above. The patient had extensive work-up, lost 3.6 lbs preoperatively and was electively scheduled for laparoscopic, possible open sleeve gastrectomy and gastropexy. Risks and complications of the surgery were discussed with the patient in advance, particularly the possibility of , pulmonary embolism, anastomotic leak, bleeding, bowel injury, GERD, cardiac, renal or pulmonary complications. The patient understood all the risks and was in agreement with the surgical plan. Hospital Course: The patient underwent an uneventful laparoscopic sleeve gastrectomy with gastropexy on the day of admission. Postoperatively, the patient was transferred to the surgical floor. The patient received IV Acetaminophen and IV dilaudid for pain control. Patient was started on bariatric phase 1 diet POD #0. On postoperative day one, the patient was feeling well without nausea, vomiting, fevers, or tachycardia. The patient had some mild incisional pain and the abdomen was soft. On the morning of postoperative day one, the patient was continued on 1 ounce of water or ice every half hour. During the day, the patient did fairly well, having some incisional pain, but able to ambulate adequately and to tolerate liquids well. Since the patient is doing well, we decided that the patient was ready to be discharged. The patient was given instructions to follow-up with me next week and to call my office for any fever over 101, persistent abdominal pain, nausea, vomiting, GERD, symptoms of DVT such as calf tenderness, or leg swelling, or pulmonary embolism such as chest pain or shortness of breath. The patient was also instructed to drink 40-60 ounces of liquids per day using the 1-ounce cups. The patient had been given prescriptions for Tylenol for pain, Zofran prn for nausea, and pantoprazole and carafate previously. The patient was encouraged to ambulate and use the incentive spirometer. The patient was allowed to shower, but no baths, and encouraged to stay active at home. All of these instructions were given to the patient personally. All questions were answered and the patient understood all instructions, the instructions were also given to the patient in print. Time Spent with Patient Time attestation: Total time managing care of this patient today ____ minutes. Discharge coordination time: Less than 30 minutes Quality: Safe Use of Opioids Does Pt have an Active Cancer Diagnosis on the Problem List?: No Quality: Stroke Does the patient have a stroke diagnosis?: No Physical Exam Vital Signs: Vital Signs: Last Vital Signs Temp 98.0 F 04/26/22 06:34 Pulse 86 04/26/22 06:34 Resp 16 04/26/22 06:34 BP 142/91 H 04/26/22 06:34 Pulse Ox 99 04/26/22 06:34 O2 Del Method 04/26/22 06:34 BMI result Body Mass Index 34.2 DS: Data Data Completed and Pending Pending studies at discharge: Pending at discharge 04/26/22 09:22 Surgical [PTH] Routine Labs on day of discharge: Laboratory Results - last 24 hr 04/25/22 14:19 COVID-19 (JACQUELINE) Negative COVID-19 Clin Com See Note Discharge Plan Discharge Anticipated Discharge Date/Time: 04/27/22 10:05 Patient Disposition: Home, Self-Care Discharge Diagnosis: s/p sleeve gastrectomy Referrals: Physician,Unknown J [Primary Care Provider] - 1 Week Discharge Medications: Continued albuterol sulfate [ProAir HFA] 90 mcg/actuation HFA aerosol inhaler 1 puff PO QID PRN (Reason: wheezing) pantoprazole 40 mg tablet,delayed release (DR/EC) 40 mg PO DAILY Qty: 30 2RF sucralfate 100 mg/mL suspension 10 ml PO BID Qty: 400 2RF ondansetron HCl 4 mg tablet 4 mg PO Q12H Qty: 20 0RF Held hydrochlorothiazide 25 mg tablet 25 mg PO DAILY Hold Instructions: Resume on 04/28/22. Measure your blood pressure daily. Don't take it if your blood pressure is below 120/70. Report blood pressures to Dr. Yuen lisinopril 2.5 mg tablet 2.5 mg PO DAILY Qty: 30 2RF Hold Instructions: Resume on 04/28/22. Measure your blood pressure daily. Don't take it if your blood pressure is below 120/70. Report blood pressures to Dr. Yuen Discontinued cholecalciferol (vitamin D3) 125 mcg (5,000 unit) capsule 125 mcg PO DAILY Qty: 30 2RF Discharge Orders: Discharge Order (Routine); Ordered 04/27/22 Ordered By: Alex Yuen Activity on Discharge: No heavy lifting Stand Alone Forms: Patient Portal Discharge page Care Plan Goals: weight loss Health Concerns: obesity Plan of Treatment: No tub baths, sex or returning to work until discussed at first post op appointment. No exercise, alcohol, tobacco or illegal drug use. Continue to use incentive spirometer hourly while awake. Walk in home for 5- 10 minutes every 2 hours during the first week. Continue phase 1 diet today and start phase 2 diet tomorrow morning. Follow all instructions in the bariatric handbook and call with any questions. 1. Please call your doctor or come back to the emergency room should any new symptoms arise. 2. You will receive a courtesy call from [facility] 24-48 hours after discharge. 3. Activity: abstain from alcohol, practice limited stair climbing, no bending, no driving, no exercise, no illicit substances, no lifting, no sex, no tub bath, no work. 4. Diet: continue as discussed with bariatric team.. 5. Dressing Change/Wound Care: Do not change or remove surgical dressings unless they are wet or soiled. 6. Call your doctor if: - Your temperature exceeds 101.5 F - You experience excessive pain or swelling - You have an unexpected reaction to medication - You have excessive bleeding - You experience continued vomiting/nausea - Your incision begins to separate - Your incision shows signs of infection such as increased redness, swelling, excessive pain, heat, or drainage (light blood or clear fluid is normal) 7. General instructions: No lifting greater than 5 lbs for the next 4 weeks[address] driving within 24 hours of taking narcotic pain medications. If you do not move your bowels in the next 2 days, please take milk of magnesia over the counter. Please follow the post op diet and do not advance your diet until you are seen in the office in about 2 weeks. Please walk around your home every hour or two to prevent blood clots from forming in your legs. You do not need to wake from sleeping to walk. Please sleep in a bed or couch to prevent kinking at the hips and knees. Please take your incentive spirometer (your lung lube attendant) home with you and use it for the next few days to prevent pneumonias. You may shower, no hot tubs, baths or swimming pools. Please call the office with any questions or concerns such as increasing abdominal pain, fever, chills, shortness of breath, chest pain, leg pain or swelling, or redness or drainage from your incisions. Do not hesitate to contact the office with any questions at . The patient's medical history has been reviewed and they are considered low risk for post op DVT and therefore DVT prophylaxis is not considered necessary. Travel after surgery was reviewed. The patient has not disclosed any travel plans during the first 30 days after surgery and they have been advised that within the first 30 days after surgery any bus, plane, train or car travel over 2 hours in duration is contraindicated due to the possibility of developing blood clots from immobility. Any travel, needs to include periods of ambulation of 10 minutes in duration every 2 hours. The patient was instructed to discuss any plans for travel during this period with their bariatric surgeon. Assessment: stable post op sleeve gastrectomy
[2022-04-26] MEDS: Famotidine/PF 20 MG/2 ML VIAL IVPUSH ×2 (11:03→19:20)
[2022-04-26 11:08] LABS: Hematocrit 37.9 % (37.0-47.0); Hemoglobin 12.3 g/dl (12.0-16.0)
[2022-04-26 11:32] LABS: Anion Gap 11 (12-20); Blood Urea Nitrogen 14 mg/dL (9-16); Calcium 8.5 mg/dL (8.4-10.2); Carbon Dioxide 25 mmol/L (22-29); Chloride 105 mmol/L (96-108); Creatinine Clr Calc Pharmacy 108.9; Estimated Glomerular Filt Rate > 60; Glucose Random 120 mg/dL (60-115); Potassium 4.1 mmol/L (3.3-5.1); Sodium 137 mmol/L (135-145)
[2022-04-26] MEDS: ondansetron HCL 4 MG/2 ML VIAL IVPUSH ×2 (12:02→19:20)
[2022-04-26] MEDS: ceFAZolin Sodium/Dextrose,Iso 2 GM/50 ML PIGGYBACK IV (13:47)
[2022-04-26] MEDS: Acetaminophen 1,000 MG/100 ML PIGGYBACK 16.7 MG IV ×2 (14:29→19:20)
[2022-04-26] MEDS: lisinopriL 2.5 MG TABLET PO (15:40)
[2022-04-26] MEDS: 0.9 % Sodium Chloride Flush 3 ML SYRINGE IVFLUSH (19:21)
[2022-04-27] MEDS: Acetaminophen 1,000 MG/100 ML PIGGYBACK 16.7 MG IV ×2 (01:08→06:25)
[2022-04-27 03:43] VITALS: BP 136/90; PULSE 95; RESP 18; TEMP 37.1; O2SAT 87
[2022-04-27] MEDS: ondansetron HCL 4 MG/2 ML VIAL IVPUSH (03:45)
[2022-04-27] MEDS: Lactated Ringers 1,000 ML 100 ML IVCONT (03:47)
[2022-04-27 06:06] LABS: MANUAL DIFF FLAG NO
[2022-04-27 06:08] LABS: Basophils Percent Auto 0.2 % (0-2); Eosinophils Percent Auto 0.4 % (0-4); Hematocrit 37.6 % (37.0-47.0); Hemoglobin 12.1 g/dl (12.0-16.0); Imm Gran Abs Auto 0.02 X10*3/uL (0.00-0.03); Imm Gran Pct Auto 0.2 % (0.0-0.4); Lymphocytes Absolute Auto 1.8 X10*3/uL (1.2-4.9); Lymphocytes Percent Auto 21.6 % (20-40); Mean Corpuscular HGB Conc 32.2 g/dl (31.0-35.0); Mean Corpuscular Hemoglobin 28.7 pg (27.0-33.0); Mean Corpuscular Volume 89.1 fL (80.0-98.0); Mean Platelet Volume 11.5 fL (9.4-12.3); Monocytes Absolute Auto 0.7 X10*3/uL (0.1-1.2); Monocytes Percent Auto 7.9 % (2-11); Neutrophils Absolute Auto 5.7 x10*3/uL (2.0-8.3); Neutrophils Percent Auto 69.7 % (45-73); Platelet Count 357 X10*3/uL (160-400); Red Blood Count 4.22 X10*6/uL (4.20-5.50); Red Cell Distribution Width 12.6 % (11.0-16.0); White Blood Count 8.2 X10*3/uL (4.8-10.8)
[2022-04-27 06:31] LABS: Anion Gap 13 (12-20); Blood Urea Nitrogen 8 mg/dL (9-16); Carbon Dioxide 26 mmol/L (22-29); Chloride 103 mmol/L (96-108); Creatinine Clr Calc Pharmacy 113.3; Estimated Glomerular Filt Rate > 60; Glucose Random 79 mg/dL (60-115); Potassium 3.8 mmol/L (3.3-5.1); Sodium 138 mmol/L (135-145)
[2022-04-27 07:40] VITALS: O2SAT 98
[2022-04-27 08:00] VITALS: BP 150/88; PULSE 95; RESP 18; TEMP 36.8; O2SAT 98
[2022-04-27] MEDS: lisinopriL 2.5 MG TABLET PO (08:01)
[2022-04-27] MEDS: Famotidine/PF 20 MG/2 ML VIAL IVPUSH (08:01)
--- NOTE | 2022-04-27 09:07 | MHC.CM.PN ---
EMR REVIEWED, PT ADMITTED S/P LAP SLEEVE GASTRECTOMY, PT REPORTS SHE LIVES W/HER CHILDREN, IS INDEP W/ALL CARE, DENIES USE OF DME/HOME SERVICES, PT VERIFIES [id number], PCP LOCATED AT [facility] AND HCP IS PT'S MOTHER MARIAM MANUEL [phone], COPY REQUESTED. D/C PLAN: HOME TODAY SELF-CARE W/OUTPT FOLLOW-UP NEXT WEEK AND FAMILY FOR TRANSPORT
--- NOTE | 2022-04-27 10:27 | HO.POSTANES ---
Post Anesthesia Evaluation Post Anesthesia Evaluation Vital Signs: Vital Signs Temp Pulse Resp BP Pulse Ox O2 Del Method 04/27/22 07:40 98 Room Air 04/27/22 08:00 98.3 F 95 18 150/88 H 98 Room Air 04/27/22 03:43 98.7 F 95 18 136/90 H 87 L Room Air 04/26/22 23:32 97.9 F 98 18 130/88 96 Room Air Anesthesia: General Endotracheal-GETA Mental Status: Awake Pain Control: Satisfactory Nausea/Vomiting: None Hydration: Adequate Anesthesia-Related Issues: No Anes. Related Issues
== END 2022-04-27 09:56 | disposition home or self-care (01) | DRG 403 ==
LOC: HO.SSSA 10:12 → HO.S3 10:25
PROVIDERS: Physician Assistant; Physician Assistant Surgical; Admitting Provider Surgery; PCP Internal Medicine; Visit Provider Surgery
PROC: 0DB64Z3 Excision of Stomach, Percutaneous Endoscopic Approach, Vertical (ICD-10-PCS; CPT 43845; principal; 2022-04-26 07:30)
DX: E66.01 Morbid (severe) obesity due to excess calories (principal); Q43.3 Congenital malformations of intestinal fixation; K74.00 Hepatic fibrosis, unspecified; I10 Essential (primary) hypertension; Z68.33 Body mass index [BMI] 33.0-33.9, adult; F32.A Depression, unspecified; F41.9 Anxiety disorder, unspecified; K21.9 Gastro-esophageal reflux disease without esophagitis; J45.909 Unspecified asthma, uncomplicated; Z20.822 Contact with and (suspected) exposure to COVID-19; Z98.51 Tubal ligation status; Z79.899 Other long term (current) drug therapy
CPT/HCPCS: 36415; 80048; 80053; 80061; 83036; 83525; 84443; 85014; 85018; 85025; 85610; 85730; 86140; 86850; 86900; 86901; 87635; 88307; 88342; A4649; C9088; J0131; J0690; J1100; J1170; J2250; J2370; J2405; J2795; J3010

== ENCOUNTER → 2022-05-03 15:21 | Outpatient (BNVA) | payer OTHER, SELFPAY | PROVIDERS: PCP Internal Medicine; Visit Provider Physician Assistant Surgical | DX: Z13.89 Encounter for screening for other disorder (principal) ==

== ENCOUNTER → 2022-05-20 16:26 | Outpatient (BNVA) | payer OTHER, SELFPAY | PROVIDERS: PCP Internal Medicine; Visit Provider Physician Assistant Surgical | DX: Z13.89 Encounter for screening for other disorder (principal) | CPT/HCPCS: 99212 ==

== ENCOUNTER → 2022-06-08 16:19 | Outpatient (BNVA) | payer OTHER, SELFPAY | PROVIDERS: Visit Provider Physician Assistant Surgical | DX: Z13.89 Encounter for screening for other disorder (principal) ==

== ENCOUNTER → 2022-07-12 14:30 | Outpatient (BNVA) | payer OTHER, SELFPAY | PROVIDERS: Visit Provider Physician Assistant Surgical | DX: E66.3 Overweight (principal); Z98.84 Bariatric surgery status ==

== ENCOUNTER → 2022-09-06 15:18 | Outpatient (BNVA) | payer OTHER, SELFPAY | PROVIDERS: Visit Provider Physician Assistant Surgical | DX: E66.3 Overweight (principal); Z98.84 Bariatric surgery status ==

== ENCOUNTER → 2022-10-06 13:38 | Outpatient (BNVA) | payer OTHER, SELFPAY | PROVIDERS: Visit Provider Dietitian, Registered | DX: E66.9 Obesity, unspecified (principal); Z68.26 Body mass index [BMI] 26.0-26.9, adult | CPT/HCPCS: 97803 ==

== ENCOUNTER 2022-11-08 13:13 | Outpatient (AMB) | payer OTHER, SELFPAY ==
--- NOTE | 2022-11-08 13:10 | A.OFFVIS_ITS ---
Intake VS Expanded 11/08/22 13:11 Height 5 ft 2 in Weight 135 lb BMI 24.7 Intake Visit Reasons: VIDEO PO LSG 04/26/22 Allergies seafood Allergy (Verified 05/03/22 15:56) Lip Swelling HPI Nutrition Presentation Details LSG DOS 04/26/22 Preop weight 187# weight at 3 MO PO 155# Last weight 143# patient reports she is not comfortable at her current weight, she feels that she has lost too much current weight 135# Reason for consult other (Weight maintenance) Diet Assmnt Details Two 30g protein shakes 2 meals/snack? - such as the below [place]i yogurt and fruit;? 2 eggs ; 4 forks protein in low carb mission wrap ; 4 forks protein 2-4 forks veg Exercise routine includes: stopped when she started losing too much weight . reports she got nervous is taking vitamins. Sent picture at last appt to buy the celebrate Diagnosis Nutrition problem #1 overweight/obesity As related to (etiology) #1 excess energy intake and physical inactivity As evidenced by (sign/symptom) #1 high BMI (improving) Monitoring/Goals Nutrition problem monitoring total energy intake, level of knowledge/skill, total PRO intake, total CHO intake and weight Outcome progress progressing Learning/Education Readiness to learn fair Stages of change action Educational materials provided Yes (text shakes/bars sheet, nut plan, vitamin to buy, food list ) Most Recent Diabetes Results: No Data to Display [facility] Medical History (Updated 06/08/22 @ 16:15 by ADELAIDE Nix) Asthma BMI 33.0-33.9,adult BMI 34.0-34.9,adult BMI 35.0-35.9,adult BMI 36.0-36.9,adult GERD (gastroesophageal reflux disease) HTN (hypertension) Major depressive disorder, recurrent, moderate Obesity Vitamin D deficiency Surgical History History of tubal ligation Hx of section Family History Mother Asthma Anxiety with depression Anemia Father No problems noted. Brother Anxiety with depression Sister No problems noted. Sister No problems noted. Sister No problems noted. Daughter No problems noted. Daughter Asthma Son Asthma Son Asthma Son No problems noted. Social History (Reviewed 05/03/22 @ 16:00 by CHRISTINA Phan Are you a primary client care specialist to a significant other at home: No Do you presently have visiting nurse or other home services: No Alcohol intake: current Alcohol intake frequency: holidays/special occasions only Patient Tobacco Use Status: Never used Tobacco service: No Current occupational status: employed Assessment & Plan Assessment & Plan (1) History of sleeve gastrectomy: Code(s): Z90.3 - Acquired absence of stomach [part of] Patient Instructions: educated on food sources of healthy fats, balancing plate appropriately, adequate protein and healthier carbs. Also explained that she may continue to lose weight naturally. Will follow up in 2 months 01/09 at 1pm Telehealth Telehealth Location of provider rendering services: practice address Location of patient: address on file Patient Identification confirmed using: Name, : Yes Telehealth method: voice only Patient verbally consented to treatment: Yes Patient verbally consented to billing insurance company: Yes Patient informed of any privacy concerns related to visit: Yes Minutes spent on Phone/Video with Pt.: 25 Coding Level of Care Code Nutr Indiv Subseq ([id number]) Diagnoses History of sleeve gastrectomy Z90.3 Time Spent (min) 25
[2022-11-08 13:11] VITALS: BMI 24.7
== END 2022-11-08 13:36 | disposition home or self-care (01) ==
LOC: HO.HBS 13:13
PROVIDERS: Visit Provider Dietitian, Registered
DX: Z90.3 Acquired absence of stomach [part of] (principal)

== ENCOUNTER → 2022-11-08 13:13 | Outpatient (BNVA) | payer OTHER, SELFPAY | PROVIDERS: Visit Provider Dietitian, Registered | DX: Z90.3 Acquired absence of stomach [part of] (principal) | CPT/HCPCS: 97803 ==

== ENCOUNTER 2023-01-06 13:03 | Outpatient (AMB) | payer OTHER, SELFPAY ==
--- NOTE | 2023-01-06 12:58 | MHC.AMNUTRGE ---
Intake VS Expanded 01/06/23 13:08 Height 5 ft 2 in Weight 138 lb BMI 25.2 Intake Visit Reasons: VIDEO PO LSG 04/26/22 Allergies seafood Allergy (Verified 05/03/22 15:56) Lip Swelling HPI Nutrition Presentation Details LSG DOS 04/26/22 Preop weight 187# weight at 3 MO PO 155# patient reports she is not comfortable at her current weight, she feels that she has lost too much last weight 135# current weight 138# Reason for consult other (Weight maintenance) Diet Assmnt Details Two 30g protein shakes 2 meals/snack? - such as the below [place] yogurt and fruit;? 2 eggs ; 4 forks protein in low carb mission wrap ; 4 forks protein 2-4 forks veg or rice. also incorporates nuts, olive oil, avocado oil into her diet Exercise routine includes: stopped when she started losing too much weight . reports she got nervous is taking vitamins. Sent picture at last appt to buy the celebrate ,she still hasn't Diagnosis Nutrition problem #1 overweight/obesity As related to (etiology) #1 excess energy intake and physical inactivity As evidenced by (sign/symptom) #1 high BMI (improving) Monitoring/Goals Nutrition problem monitoring total energy intake, level of knowledge/skill, total PRO intake, total CHO intake and weight Outcome progress progressing Learning/Education Readiness to learn fair Stages of change action Educational materials provided Yes (text shakes/bars sheet, nut plan, vitamin to buy, food list ) Most Recent Diabetes Results: No Data to Display [facility] Medical History (Updated 06/08/22 @ 16:15 by ADELAIDE Nix) GERD (gastroesophageal reflux disease) HTN (hypertension) Asthma BMI 33.0-33.9,adult BMI 34.0-34.9,adult BMI 36.0-36.9,adult Vitamin D deficiency Major depressive disorder, recurrent, moderate BMI 35.0-35.9,adult Obesity Surgical History History of tubal ligation Hx of section Family History Mother Asthma Anxiety with depression Anemia Father No problems noted. Brother Anxiety with depression Sister No problems noted. Sister No problems noted. Sister No problems noted. Daughter No problems noted. Daughter Asthma Son Asthma Son Asthma Son No problems noted. Social History Are you a primary date night caregiver to a significant other at home: No Do you presently have visiting nurse or other home services: No Alcohol intake: current Alcohol intake frequency: holidays/special occasions only Patient Tobacco Use Status: Never used Tobacco service: No Current occupational status: employed Assessment & Plan Assessment & Plan (1) S/P laparoscopic sleeve gastrectomy: Code(s): Z98.84 - Bariatric surgery status Patient Instructions: Has a healthy diet now, able to maintain. I encouraged adding in exercise again, consider strength training. needs PA appt. pt encouraged to communicate as needed with ffice Telehealth Telehealth Location of provider rendering services: other (home address, [facility]) Location of patient: address on file Patient Identification confirmed using: Name, : Yes Telehealth method: voice only Patient verbally consented to treatment: Yes Patient verbally consented to billing insurance company: Yes Patient informed of any privacy concerns related to visit: Yes Minutes spent on Phone/Video with Pt.: 10 Coding Level of Care Code Nutr Indiv Subseq ([id number]) Diagnoses S/P laparoscopic sleeve gastrectomy Z98.84 Time Spent (min) 10
[2023-01-06 13:08] VITALS: BMI 25.2
== END 2023-01-06 13:09 | disposition home or self-care (01) ==
LOC: HO.HBS 13:03
PROVIDERS: Visit Provider Dietitian, Registered
DX: Z98.84 Bariatric surgery status (principal)

== ENCOUNTER → 2023-01-06 13:03 | Outpatient (BNVA) | payer OTHER, SELFPAY | PROVIDERS: Visit Provider Dietitian, Registered | DX: Z98.84 Bariatric surgery status (principal) | CPT/HCPCS: 97803 ==